=== PATIENT | female | born 1975 | race Caucasian/White ===

== ENCOUNTER 2020-03-04 19:34 | Emergency (ER) | payer OTHER ==
[~2020-03-04] VITALS: Ht 162.6 cm; Wt 68.8 kg
[2020-03-04 19:41] VITALS: BP 154/106
[2020-03-04] MEDS ORDERED: L.E.T SOLUTION TP ONE ×2 (20:00)
[2020-03-04] MEDS ORDERED: LIDOCAINE 1%-EPI 1:100K, 20ML SQ ONE (20:00)
[2020-03-04] MEDS ORDERED: LIDOCAINE-MPF 1%, 5ML ONE (20:07)
--- NOTE | 2020-03-04 20:09 | NUR ---
Pt having laceration to forehead about an inch long and and 2cm deep. Pt had L.E.T applied by this RN. Pt reports she hit a metal edge of her table at home causing the laceration. Teatnus up to date.
--- NOTE | 2020-03-04 20:40 | NUR ---
Provider to bedside to repair laceration.
[2020-03-04] MEDS ORDERED: NEOSPORIN OINT. PKT 1 PACKET ONE (21:14)
--- NOTE | 2020-03-04 21:22 | NUR ---
Patient/Caregiver given discharge instructions and they have confirmed that they understand the instructions. Patient ambulatory with steady gait.
== END 2020-03-04 21:24 | disposition home or self-care (01) ==
LOC: ED 21:12
DX: S01.81XA Laceration without foreign body of other part of head, initial encounter (principal); W22.8XXA Striking against or struck by other objects, initial encounter; Y93.89 Activity, other specified; Y92.009 Unspecified place in unspecified non-institutional (private) residence as the place of occurrence of the external cause; Y99.8 Other external cause status
CPT/HCPCS: 12051; 99284